=== PATIENT | male | born 1975 | race Caucasian/White ===

== ENCOUNTER 2016-06-28 02:32 | Emergency (ER) | payer OTHER ==
[~2016-06-28] VITALS: Ht 175.3 cm; Wt 88.5 kg
--- NOTE | 2016-06-28 02:56 | ED ANKLE/FOOT INJURY COMPLAINT ---
History of Present Illness General Chief Complaint: Foot or Ankle Injury Stated Complaint: RT ANKLE INJURY Source: patient Exam Limitations: intoxication Vital Signs & Intake/Output Vital Signs & Intake/Output Vital Signs Date Time Temp Pulse Resp B/P Pulse O2 O2 Flow FiO2 Ox Delivery Rate 06/28 0240 98 Room Air 06/28 0234 98.9 82 20 140/89 95 Room Air Allergies Coded Allergies: Penicillins (UNKNOWN- CHILDHOOD ALLERGY 06/24/15) Reconcile Medications Naproxen (Naprosyn) 500 MG TABLET 1 TAB PO BID PAIN Triage Note: PT BIBA FROM HOME C/O RIGHT ANKLE PAIN. PT STATES HE WAS SHOVELING AROUND 1930 WHEN HE SLIPPED AND TWISTED RIGHT ANKLE. UPON ARRIVAL PTS RIGHT ANKLE IS SWOLLEN. PER EMS ALCOHOL WAS ON BOARD TONIGHT. Triage Nurses Notes Reviewed? yes HPI: Presents for evaluation of an abrupt onset of right ankle pain after jumping over a snowbank and rolling his right ankle. He is now complaining of a moderate constant aching and sharp bilateral right ankle pain. Worse with attempts to ambulate (although patient has been able to ambulate). She states there is some lateral right ankle swelling but no ecchymoses. He states that he self medicated with 2 beers after the incident. Past History Travel History Traveled to [place] past 21 day No Medical History Any Pertinent Medical History? 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 No Review of Systems Review of Systems Constitutional: Reports: no symptoms. EENTM: Reports: no symptoms. Respiratory: Reports: no symptoms. Cardiovascular: Reports: no symptoms. GI: Reports: no symptoms. Genitourinary: Reports: no symptoms. Musculoskeletal: Reports: see HPI. Skin: Reports: no symptoms. Neurological/Psychological: Reports: no symptoms. Hematologic/Endocrine: Reports: no symptoms. Immunologic/Allergic: Reports: no symptoms. All Other Systems: Reviewed and Negative Physical Exam Physical Exam Leg/Knee/Thigh Left: see below Comments: Gen.: Well-nourished, well-developed, no acute respiratory distress. Head: Normocephalic, atraumatic. Eyes: Normal inspection bilaterally Ears: Normal inspection bilaterally Nose: Normal inspection, nasal cannula in place Throat/mouth : Moist mucosa Neck: Supple, full range of motion, no goiter Heart: Regular rate and rhythm Lungs: Quiet respirations Back: Normal range of motion Extremities: Right ankle: Tenderness over the anterior lateral malleolus without associated ecchymoses and since there is mild vasyl-malleolar soft tissue swelling present), right foot: Normal dorsalis pedis pulse, normal examination. Neurologic: Cranial nerves grossly intact, speech is clear Skin: warm and dry Psychiatric: Calm, cooperative, no apparent delusions or hallucinations Progress Differential Diagnosis: fracture, dislocation, sprain Plan of Care: Orders Procedure Date/time Status Durable Medical Equipment 06/29 355 Active Current Medications Sig/Vicki Start time Last Medication Dose Stop Time Status Admin Naproxen 500 MG ONCE ONE 06/29 399 UNVr (Naprosyn) 06/28 400 Diagnostic Imaging: Discussed w/RAD: Radiology Read. Radiology Impression: LATERAL SOFT TISSUE SWELLING WITHOUT EVIDENCE OF FRACTURE. hEEL SPURS. Comments: 06/28/2016 4:01:54 AM I have updated Robbie on his test results. He has been placed in an air cast and has a set of crutches with him. He states that he has no ride home and I have advised against walking home particularly with his current injury. I suggested he stay in our waiting room until the taxis are running again later this morning. Departure Departure Disposition: HOME OR SELF CARE Condition: Stable Clinical Impression Primary Impression: Right ankle sprain Qualifiers: Encounter type: initial encounter Involved ligament of ankle: deltoid ligament Qualified Code: S93.421A - Sprain of deltoid ligament of right ankle, initial encounter Referrals: LINDSEY JOHNSON MD (PCP/Family) Additional Instructions: Ice and elevation of your right ankle over the next 48 hours. Naprosyn As prescribed for pain. Activity as tolerated. Use the Aircast as needed. Follow -up with your primary care physician in 2 weeks if not improving. Return if any concerns or sudden worsening. Please note that there might be incidental findings in your evaluation that are unrelated to the current emergency department visit. Please notify your primary care doctor about this emergency department visit in order to obtain and review all of the testing performed so that these incidental findings can be monitored as needed. If you had an x-ray performed, please understand that some fractures may not be seen on the initial set of x-rays. If your symptoms persist you might need a repeat set of x-rays to check for such a fracture. If you had a laceration evaluated, please understand that foreign bodies such as glass or wood may not be visible to the naked eye or on plain x-rays. If the wound becomes red, swollen, increasingly more painful or if there is any drainage from the wound, please have it reevaluated by a physician for the possibility of a retained foreign body. Thank you for choosing the [facility] Emergency Department for your care. It was a pleasure to serve you today. Juarez Craig M.D. [facility] Departure Forms: Customer Survey General Discharge Information Prescriptions: Current Visit Scripts Naproxen (Naprosyn) 1 TAB PO BID #20 TAB
--- NOTE | 2016-06-28 03:34 | RADIOLOGY REPORT ---
EXAMINATION: XR ANKLE, RIGHT CLINICAL INFORMATION: Inversion injury with lateral pain and tenderness. COMPARISON: None TECHNIQUE: AP, lateral, and mortise views of the right ankle. FINDINGS: No fracture or dislocation. The ankle mortise is congruent. No ankle joint effusion. Lateral soft tissue swelling is noted. There is hypertrophic spurring of the plantar aponeurosis and Achilles insertion to the calcaneus. IMPRESSION: Lateral soft tissue swelling without evidence of acute fracture. Heel spurs.
[2016-06-28] MEDS ORDERED: NAPROSYN500 M1 PO (03:56)
[2016-06-28 04:13] VITALS: BP 136/82
== END 2016-06-28 04:13 ==
LOC: ERH 02:32
DX: S93.401A Sprain of unspecified ligament of right ankle, initial encounter (principal); X58.XXXA Exposure to other specified factors, initial encounter
CPT/HCPCS: 73610-RT

== ENCOUNTER 2016-07-04 19:30 | Emergency (ER) | payer OTHER ==
[~2016-07-04] VITALS: Ht 175.3 cm; Wt 88.5 kg
[~2016-07-04 19:30] MED LIST: NAPROSYN500 M1 PO
[2016-07-04 19:59] VITALS: BP 157/110
--- NOTE | 2016-07-04 20:06 | ED GI/GU/ABDOMINAL COMPLAINT ---
History of Present Illness General Chief Complaint: General Adult Stated Complaint: NEEDS NEW MEDS FOR PAIN DUE TO GI UPSET Source: patient Exam Limitations: no limitations Vital Signs & Intake/Output Vital Signs & Intake/Output Vital Signs Date Time Temp Pulse Resp B/P Pulse O2 O2 Flow FiO2 Ox Delivery Rate 07/04 1958 98.2 76 16 157/110 98 Room Air Room Air Allergies Coded Allergies: Penicillins (UNKNOWN- CHILDHOOD ALLERGY 07/04/16) naproxen (Intermediate, BLOODY STOOLS, ABD PAIN 07/04/16) Reconcile Medications Naproxen (Naprosyn) 500 MG TABLET 1 TAB PO BID PAIN Tramadol HCl 50 MG TABLET 1-2 TAB PO 4 TIMES/DAY PRN PAIN SIXTY...[id number] Triage Note: PT TO TRIAGE FOR NEW PAIN MEDICATION, PT WAS RX NAPROXIN 1 WEEK PRIOR AND STATES WHILE TAKING HE WAS HAVING ABD PAIN, BLOODY STOOL AND A A FEELING OF HUNGER. PT STATES HE STOPPED ON SUNDAY AND THOSE SYMPTOMS RESOLVED. PT STATES HIS PAIN IS UNCONTROLED Triage Nurses Notes Reviewed? yes Onset: Gradual Duration: day(s): Timing: recent history Quality/Severity: burning Location: epigastric Radiation: no radiation Activities at Onset: none Prior Abdominal Problems: none Modifying Factors: Worsens With: palpation. Associated Symptoms: abdominal pain HPI: 41 yo gentleman presents seeking a change in his pain regimen. He suffered a right ankle sprain last week. He was given naprosyn twice a day but developed abdominal pain and loose bloody stools. He stopped the medication and his symptoms resolved. He states that he is still in pain. He spoke to his primary care doctor who suggested tylenol and referred him to the ED. He notes swelling of his right lower extremity. Past History Travel History Traveled to [place] past 21 day No Medical History Any Pertinent Medical History? 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 No Review of Systems Review of Systems Constitutional: Reports: no symptoms. EENTM: Reports: no symptoms. Respiratory: Reports: no symptoms. Cardiovascular: Reports: no symptoms. GI: Reports: no symptoms. Genitourinary: Reports: no symptoms. Musculoskeletal: Reports: no symptoms. Skin: Reports: no symptoms. Neurological/Psychological: Reports: no symptoms. Hematologic/Endocrine: Reports: no symptoms. Immunologic/Allergic: Reports: no symptoms. All Other Systems: Reviewed and Negative Physical Exam Physical Exam General Appearance: well developed/nourished, mild distress Head: atraumatic, normal appearance Eyes: Bilateral: normal appearance. Ears, Nose, Throat, Mouth: hearing grossly normal Neck: normal inspection, supple Respiratory: normal breath sounds Cardiovascular: regular rate/rhythm Gastrointestinal: normal bowel sounds, soft, non-tender, no organomegaly Extremities: RIGHT ANKLE IN A STIRRUP. 2+ EDEMA TO KNEE. Neurologic/Psych: no motor/sensory deficits, awake, alert, oriented x 3 Skin: intact, normal color, warm/dry Core Measures ACS in differential dx? No Severe Sepsis Present: No Septic Shock Present: No Progress Differential Diagnosis: GASTRITIS FROM NSAIDS VS OTHER. RIGHT ANKLE SPRAIN, DVT OF RIGHT LEG - LOW CLINICAL SUSPICION Plan of Care: SEE BELOW... PT REFERRED FOR U/S IN am... PT GIVEN REQUISITION. Initial ED EKG: none Departure Departure Disposition: HOME OR SELF CARE Condition: Stable Clinical Impression Primary Impression: Right ankle sprain Secondary Impressions: Right leg swelling Referrals: LINDSEY JOHNSON MD (PCP/Family) Departure Forms: Customer Survey General Discharge Information Prescriptions: Current Visit Scripts Tramadol HCl 1-2 TAB PO 4 TIMES/DAY PRN PAIN #60 TAB SIXTY...[id number] Comments 07/04/16, 20:22.... discussed at length with patient.... I filled out requisition for him to return in ED for ultrasound. He will follow up with his pmd. Rx written for carol.
[2016-07-04] MEDS ORDERED: TRAMADOL HCL50 M1 PO (20:13)
[2016-07-05] MEDS ORDERED: ELIQUIS5 M1 PO (17:10)
== END 2016-07-04 20:23 ==
LOC: ERH 19:30
DX: S93.401A Sprain of unspecified ligament of right ankle, initial encounter (principal); M79.89 Other specified soft tissue disorders; X58.XXXA Exposure to other specified factors, initial encounter; Y92.9 Unspecified place or not applicable; Y93.9 Activity, unspecified

== ENCOUNTER 2016-07-05 15:20 | Emergency (ER) | payer OTHER ==
[~2016-07-05] VITALS: Ht 175.3 cm; Wt 88.5 kg
[~2016-07-05 15:20] MED LIST changes: +TRAMADOL HCL50 M1 PO
[2016-07-05 15:24] VITALS: BP 158/107
--- NOTE | 2016-07-05 15:32 | ED UPPER/LOWER EXTREMITY COMPL ---
History of Present Illness General Chief Complaint: Lower Extremity Problems Stated Complaint: SENT OVER FROM US FOR EVAL, ?DVT Source: patient Exam Limitations: no limitations Vital Signs & Intake/Output Vital Signs & Intake/Output Vital Signs Date Time Temp Pulse Resp B/P Pulse O2 O2 Flow FiO2 Ox Delivery Rate 07/05 1659 96 Room Air 07/05 1524 97.3 68 18 158/107 96 Room Air Allergies Coded Allergies: Penicillins (UNKNOWN- CHILDHOOD ALLERGY 07/04/16) naproxen (Intermediate, BLOODY STOOLS, ABD PAIN 07/04/16) Reconcile Medications Apixaban (Eliquis) 5 MG TABLET 1 TAB PO BID DVT TAKE 2 TABS PO BID X 7 DAYS THEN REDUCE TO 5MG BID. Tramadol HCl 50 MG TABLET 1-2 TAB PO 4 TIMES/DAY PRN PAIN SIXTY...[id number] Triage Note: PT STATES THAT HE WAS SEEN LAST PM FOR PAIN BEHIND R KNEE X 1WEEK AND WENT FOR OUT PT US AND BROUGHT OVER FOR DVT Triage Nurses Notes Reviewed? yes Onset: Gradual Duration: week(s): (1) Timing: no prior history Severity: moderate Severity Numbers: 7 Pain/Injury Location: Right: Ankle. Method of Injury: fall No Modifying Factors: none Associated Symptoms: swelling HPI: Patient is a 41-year-old male with history of daily smoking presenting to the emergency department with chief complaint of increasing swelling and pain to the right lower extremity. Patient was seen and evaluated here 2 weeks ago for ankle sprain. He has been using crutches since then. Denies any shortness of breath or chest pain. He stopped using his naproxen 5 days ago and noticed increase in pain. He came back yesterday for reevaluation and was given tramadol and had an outpatient ultrasound scheduled for today. He was told that he has a DVT and was sent to the emergency department for evaluation. Pain is worse with palpation. No numbness or tingling. (LUDY ALEXIS) Past History Travel History Traveled to [place] past 21 day No Medical History Any Pertinent Medical History? 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 No (LUDY ALEXIS) Review of Systems Review of Systems Constitutional: Reports: no symptoms. Comments Review of systems: See HPI, All other systems negative. Constitutional, no chills fever or weight loss HEENT: No visual changes no sore throat no congestion Cardiovascular: No chest pain ,palpitation , orthopnea or ankle swelling Skin, no jaundice no rashes Respiratory: No dyspnea cough sputum or hemoptysis GI: No nausea no vomiting : No dysuria No hematuria Muscle skeletal: no back pain, no neck pain, Neurologic: No CONFUSION Psych: No stress anxiety Immunology: No splenectomy or history of AIDS (LUDY ALEXIS) Physical Exam Physical Exam General Appearance: well developed/nourished, no apparent distress, alert, awake , comfortable Comments: Well-developed well-nourished person in no acute distress HEENT: Pupils equally round and reactive to light and accommodation. Nose is atraumatic. Neck: NORMAL INSPECTION Back: NontendeR Cardiovascular: Regular rate and rhythms no murmurs rubs or gallops, normal JVP Respiratory: Chest nontender. No respiratory distress.breath sounds clear to auscultation bilaterally Extremity: Right calf is severely edematous compared to the left. Tender to palpation. Pedal pulses are 1+ bilaterally. Capillary refills intact IN LOWER EXT bilaterally. No tenderness or edema noted to left lower extremity. Neuro: Alert oriented x3, motor sensory normal Skin: Superficial abrasion noted to the medial aspect of the right calf approximately 4 cm in size. No surrounding erythema or edema., where Aircast was. Psych: Mood and affect is normal, memory and judgment is normal. (LUDY ALEXIS) Progress Differential Diagnosis: contusion, dislocation, DVT, sprain, ABRASIONS Plan of Care: Orders Procedure Date/time Status PARTIAL THROMBOPLASTIN TIME 07/05 1532 Complete PROTHROMBIN TIME 07/05 1532 Complete COMPREHENSIVE METABOLIC PANEL 07/05 1532 Complete CBC WITHOUT DIFFERENTIAL 07/05 153 Complete Laboratory Tests 07/05/16 1557: Anion Gap 12, Estimated GFR > 60, BUN/Creatinine Ratio 18.9, Glucose 88, Calcium 9.6, Total Bilirubin 1.0, AST 34, ALT 60, Alkaline Phosphatase 89, Total Protein 7.3, Albumin 4.2, Globulin 3.1, Albumin/Globulin Ratio 1.4, PT 12.8 H, INR 1.22 H, APTT 29, CBC w Diff NO MAN DIFF REQ, RBC 5.10, MCV 96.3 H, MCH 32.8 H, RDW 14.1, MPV 9.3, Gran % 73.6, Lymphocytes % 19.3 L, Monocytes % 5.7, Eosinophils % 0.9, Basophils % 0.5, Absolute Granulocytes 5.9, Absolute Lymphocytes 1.6, Absolute Monocytes 0.5, Absolute Eosinophils 0.1, Absolute Basophils 0, PUBS MCHC 34.0 Diagnostic Imaging: Viewed by Me: Ultrasound. Discussed w/RAD: Ultrasound. Radiology Impression: RIGHT FEM POP DVT Comments: SPOKE WITH DR LAKHANI, WILL SEE PT OUTPT TOMORROW AT 945. WILL START ELIQUIS TODAY. Patient will follow-up with Dr. Lakhani tomorrow morning. Educated on signs and symptoms to return. Patient currently not having any shortness of breath or chest pain. Patient is not tachycardic or dyspneic. He'll return if he develops any no symptoms. Discussed with and she agrees to plan. (LUDY ALEXIS) Departure Departure Time of Disposition: 1705 Disposition: HOME OR SELF CARE Condition: Stable Clinical Impression Primary Impression: DVT (deep venous thrombosis) Qualifiers: DVT location: lower extremity Affected thrombotic vein of extremity : femoral Laterality: right Chronicity: acute Qualified Code: I82.411 - Acute embolism and thrombosis of right femoral vein Referrals: LINDSEY JOHNSON MD (PCP/Family) ASH LAKHANI MD Additional Instructions: Follow-up with Dr. LAKHANI, vascular surgeon in his [place] office tomorrow morning at 9:45 AM. Start anticoagulation as prescribed. Return for worsening symptoms or concerns. Departure Forms: Customer Survey General Discharge Information Prescriptions: Current Visit Scripts Apixaban (Eliquis) 1 TAB PO BID #60 TAB TAKE 2 TABS PO BID X 7 DAYS THEN REDUCE TO 5MG BID. (LUDY ALEXIS) PA/CERTIFIED PHARMACY TECHNICIAN Co-Sign Statement Statement: ED Attending supervision documentation- [] I saw and evaluated the patient. I have also reviewed all the pertinent lab results and diagnostic results. I agree with the findings and the plan of care as documented in the PA's/CERTIFIED PHARMACY TECHNICIAN's documentation. [X] I have reviewed the ED Record and agree with the PA's/CERTIFIED PHARMACY TECHNICIAN's documentation. [] Additions or exceptions (if any) to the PAs/CERTIFIED PHARMACY TECHNICIAN's note and plan are summarized below: [] (ERIN MILLS,JOIE)
[2016-07-05 16:14] LABS: ABSOLUTE BASOPHIL COUNT 0 /CUMM (0.0-0.2); ABSOLUTE EOSINOPHIL COUNT 0.1 /CUMM (0.0-0.7); ABSOLUTE GRANULOCYTE CT 5.9 /CUMM (1.4-6.5); ABSOLUTE LYMPH COUNT 1.6 /CUMM (1.2-3.4); ABSOLUTE MONOCYTE COUNT 0.5 /CUMM (0.10-0.60); BASOPHIL % 0.5 % (0.0-2.0); EOSINOPHIL % 0.9 % (0-5); GRANULOCYTE % 73.6 % (42.2-75.2); HEMATOCRIT 49.2 % (42-52); MEAN CORPUSCULAR HGB 32.8 PG (27.0-31.0); MEAN CORPUSCULAR VOLUME 96.3 FL (80.0-94.0); MEAN PLATELET VOLUME 9.3 FL (7.4-10.4); PLATELET COUNT 134 /CUMM (130-400); RBC DISTRIBUTION WIDTH 14.1 % (11.5-14.5); WHITE BLOOD CELL COUNT 8.1 /CUMM (4.8-10.8)
[2016-07-05 16:17] LABS: PT 12.8 SEC (9.4-12.5); PTT 29 SEC (25-37)
[2016-07-05] MEDS ORDERED: ELIQUIS5 M1 PO (17:10)
== END 2016-07-05 17:48 ==
LOC: ERH 15:20
PROVIDERS: Physician Assistant
DX: I82.401 Acute embolism and thrombosis of unspecified deep veins of right lower extremity (principal)